=== PATIENT | female | born 1995 | race Caucasian/White ===

== ENCOUNTER 2019-02-11 17:06 | Emergency (ER) | payer SELFPAY ==
[~2019-02-11] VITALS: Ht 165.1 cm; Wt 63.5 kg
[2019-02-11 17:30] VITALS: BP 106/71
--- NOTE | 2019-02-11 17:30 | NUR ---
ED Nurse Note: pt walked in to ED with friend due to right knee pain. no recent injury. hx of right knee surgery. pt unable to weight on it. AAO x4. respirations even and non-labored noted. will wait for the further order.
--- NOTE | 2019-02-11 18:07 | Emergency Room Report ---
History of Present Illness General Chief Complaint: Pain Source: Patient Present Illness HPI 23-year-old female presents to the emergency department complaining of 7 out of 10 in severity acute onset pain and swelling with tenderness to the right knee since this morning. Patient reports that she was sitting [place] style and when she went to get up she was unable to straighten her leg completely. Patient reports pain with range of motion however she is able to bend the knee. states it feels "stuck". Patient also reports that she has had multiple ligamental tears and surgery was performed in the affected knee. Patient denies erythema, warmth, recent surgical procedures, or recent open wounds. Denies trauma or fall. Denies paresthesias. Allergies: Coded Allergies: No Known Allergies (Unverified , 02/11/19) Patient History Past Medical History: see triage record Past Surgical History: none Pertinent Family History: none Now: No Reviewed Nursing Documentation: PMH: Agreed; PSxH: Agreed Nursing Documentation-PMH Past Medical History: No History, Except For Review of Systems All Other Systems: negative except mentioned in HPI Physical Exam Vital Signs Date Time Temp Pulse Resp B/P (MAP) Pulse Ox O2 Delivery O2 Flow Rate FiO2 02/11/19 17:20 97.5 96 16 106/71 98 Room Air Sp02 EP Interpretation: reviewed, normal General Appearance: alert, GCS 15, non-toxic, mild distress Head: normocephalic, atraumatic Eyes: bilateral eye normal inspection, bilateral eye PERRL ENT: hearing grossly normal, normal voice Neck: full range of motion Respiratory: chest non-tender, lungs clear, normal breath sounds, speaking full sentences Cardiovascular #1: regular rate, rhythm, normal capillary refill Cardiovascular #2: 2+ dorsalis pedis (R) Musculoskeletal: back normal, gait/station normal, normal range of motion, tender - anterior lateral aspect of the right knee, no increased laxity, unable to fully extend, able to flex. she extends to approx 85 %. no erythema or warmth , some mild swelling noted, no palpable effusion. Patella appears in normal anatomical position. Neurologic: alert, oriented x3, responsive, motor strength/tone normal, sensory intact, speech normal, grossly normal Psychiatric: judgement/insight normal Skin: normal color, no rash, warm/dry, well hydrated Lymphatic: no adenopathy Medical Decision Making PA Attestation Dr. Hui is my supervising Physician whom patient management has been discussed with. Diagnostic Impression: Primary Impression: Knee pain, acute Qualified Codes: M25.561 - Pain in right knee ER Course 23-year-old female presents to the emergency department complaining of 7 out of 10 in severity acute onset pain and swelling with tenderness to the right knee since this morning. Patient reports that she was sitting [place] style and when she went to get up she was unable to straighten her leg completely. Patient reports pain with range of motion however she is able to bend the knee. states it feels "stuck". Patient also reports that she has had multiple ligamental tears and surgery was performed in the affected knee. Patient denies erythema, warmth, recent surgical procedures, or recent open wounds. Denies trauma or fall. Denies paresthesias. Ddx considered but are not limited to Fracture, dislocation, contusion, Sprain/ Strain/Spasm Vital signs: are WNL, pt. is afebrile H&PE are most consistent with musculoskeletal injury will perform imaging to r/ o fractures/dislocations. ORDERS: - X-ray Right Knee 3 views - negative for fx, Dislocation, or significant soft tissue injury, per preliminary read in ED, and signed by SHERRIE Chairez , my supervising physician has reviewed, and agrees with my interpretation. ED INTERVENTIONS: - [place] PO - Souleymane wrap applied by plant technician/control room operator. Pt. remains neurovascularly intact. - -Patient is provided with crutches and instructed on their use -I do not identify an emergent condition at this time. With current presentation , pt. is stable for close outpatient follow up and conservative treatment. D/ w pt. to return promptly to ED with worsening or new symptoms.- Pt. verbalizes' understanding and agreement with proposed treatment plan. DISCHARGE: At this time pt. is stable for d/c to home. Will provide printed patient care instructions, and any necessary prescriptions. Care plan and follow up instructions have been discussed with the patient prior to discharge. Other X-Ray Diagnostic Results Other X-Ray Diagnostic Results : X-Ray ordered: Right kNee # of Views/Limited Vs Complete: 3 View Indication: Pain EP Interpretation: Yes SHERRIE Xray: Interpretation reviewed, by supervising MD, and agrees with findings. Interpretation: no dislocation, no soft tissue swelling, no fractures Impression: No acute disease Electronically Signed by: Khalida Chairez PA-C Last Vital Signs Date Time Temp Pulse Resp B/P (MAP) Pulse Ox O2 Delivery O2 Flow Rate FiO2 02/11/19 17:20 97.5 96 16 106/71 98 Room Air Status: improved Disposition: HOME, SELF-CARE Condition: Stable Referrals: NON PHYSICIAN (PCP) Patient Instructions: Knee Pain, [id number] Additional Instructions: Take medications as directed. Follow up with an SAFETY LEADER in 3-5 days, even if your symptoms have resolved. If symptoms persist MRI may be required at the discretion of your PCP or Ortho Specialist. --Please review list of primary care clinics, if you do not already have a primary care provider who can give you an Orthopedic Referral. Return sooner to ED if new symptoms occur, or current symptoms become worse. - Please note that this Emergency Department Report was dictated using Cloud Securitylithograph press operator technology software, occasionally this can lead to erroneous entry secondary to interpretation by the dictation equipment. Khalida Chairez Feb 11, 2019 18:07
[2019-02-11] MEDS ORDERED: IBUPROFEN600 MG ORAL (18:18)
--- NOTE | 2019-02-11 18:26 | Diagnostic Imaging Report ---
EXAM: XR Right Knee, 3 views CLINICAL HISTORY: PAIN TECHNIQUE: Three views of the right knee. COMPARISON: No relevant prior studies available. FINDINGS: Bones/joints: No acute fracture or malalignment. Postsurgical changes of prior ACL reconstruction. Soft tissues: Unremarkable. IMPRESSION: No acute fracture or malalignment.
[2019-02-11] MEDS ORDERED: Tylenol #3 tab (300mg/30mg) ORAL ONE (18:30)
--- NOTE | 2019-02-11 18:40 | NUR ---
ED Nurse Note: crutches and avril warp provide.
[2019-02-11 18:45] VITALS: BP 111/77
--- NOTE | 2019-02-11 18:47 | NUR ---
ER DISCHARGE NOTE: Patient is cleared to be discharged with friend per SUNITA, pt is aox4, on room air, with stable vital signs. pt was given dc and prescription instructions, pt was able to verbalize understanding, pt id band removed. pt is able to ambulate with steady gait. pt took all belongings.
== END 2019-02-11 19:07 | disposition home or self-care (01) ==
LOC: EMR 17:44
DX: M25.561 Pain in right knee (principal)
CPT/HCPCS: 99284

== ENCOUNTER 2019-09-08 15:42 | Emergency (ER) | payer OTHER ==
[~2019-09-08] VITALS: Ht 165.1 cm; Wt 68.0 kg
[~2019-09-08 15:42] MED LIST: IBUPROFEN600 MG ORAL
[2019-09-08 16:19] VITALS: BP 126/73
--- NOTE | 2019-09-08 16:39 | Emergency Room Report ---
History of Present Illness General Chief Complaint: Upper Extremity Injury Source: Medical Record Present Illness HPI 23-year-old female presents to the emergency department complaining of 5 out of 10 severity pain, swelling and persistent symptoms of the right elbow x5 days. Patient reports she has had similar symptoms in the past. Patient denies trauma or fall. Patient denies erythema, warmth, fevers, chills or recent open wounds near the affected area. Denies numbness tingling or loss of sensation or gross motor movements of the extremities, incontinence of bowel or bladder. Denies CP, Palpitations, LOC, AMS, dizziness, Changes in Vision, weakness or a sudden severe headache. Allergies: Coded Allergies: No Known Allergies (Unverified , 02/11/19) Patient History Past Medical History: see triage record Past Surgical History: none Pertinent Family History: none Now: No Reviewed Nursing Documentation: PMH: Agreed; PSxH: Agreed Nursing Documentation-PMH Past Medical History: No History, Except For Review of Systems All Other Systems: negative except mentioned in HPI Physical Exam Vital Signs Date Time Temp Pulse Resp B/P (MAP) Pulse Ox O2 Delivery O2 Flow Rate FiO2 09/08/19 15:46 98.2 84 14 126/73 (90) 99 Room Air Sp02 EP Interpretation: reviewed, normal General Appearance: no apparent distress, alert, GCS 15, non-toxic Head: normocephalic, atraumatic Eyes: bilateral eye normal inspection, bilateral eye PERRL ENT: hearing grossly normal, normal voice Neck: full range of motion Respiratory: lungs clear, normal breath sounds, speaking full sentences Cardiovascular #1: regular rate, rhythm, normal capillary refill Cardiovascular #2: 2+ radial (R), 2+ radial (L) Musculoskeletal: gait/station normal, normal range of motion, non-tender, swelling - non erythematous swelling localized to the right posterior elbow, palpable bursa, no warmth, FROM of the joint, no bony ttp. Neurologic: alert, oriented x3, responsive, motor strength/tone normal, sensory intact, speech normal, grossly normal Psychiatric: judgement/insight normal Skin: no rash, normal color Lymphatic: no adenopathy Medical Decision Making PA Attestation Dr. Sims is my supervising Physician whom patient management has been discussed with. Diagnostic Impression: Primary Impression: Olecranon bursitis of right elbow ER Course 23-year-old female presents to the emergency department complaining of 5 out of 10 severity pain, swelling and persistent symptoms of the right elbow x5 days. Patient reports she has had similar symptoms in the past. Patient denies trauma or fall. Patient denies erythema, warmth, fevers, chills or recent open wounds near the affected area. Denies numbness tingling or loss of sensation or gross motor movements of the extremities, incontinence of bowel or bladder. Denies CP, Palpitations, LOC, AMS, dizziness, Changes in Vision, weakness or a sudden severe headache. Ddx considered but are not limited to Fracture, dislocation, contusion, Sprain/ Strain/Spasm, gout, septic joint, bursitis just to name a few Vital signs: are WNL, pt. is afebrile H&PE are most consistent with right olecranon bursitis no evidence of infection no erythema no warmth patient has full range of motion no tenderness on palpation no obvious deformities otherwise. ORDERS: - X-ray warranted at this time no history of trauma or fall and no localized bony tenderness. ED INTERVENTIONS: -Souleymane wrap applied to the right elbow by manager technical services. Pt. remains neurovascularly intact. -I do not identify an emergent condition at this time. With current presentation , pt. is stable for close outpatient follow up and conservative treatment. D/ w pt. to return promptly to ED with worsening or new symptoms.- Pt. verbalizes' understanding and agreement with proposed treatment plan. DISCHARGE: At this time pt. is stable for d/c to home. Will provide printed patient care instructions, and any necessary prescriptions. Care plan and follow up instructions have been discussed with the patient prior to discharge. Last Vital Signs Date Time Temp Pulse Resp B/P (MAP) Pulse Ox O2 Delivery O2 Flow Rate FiO2 09/08/19 16:19 98.2 14 126/73 99 Room Air 09/08/19 15:46 84 Disposition: HOME, SELF-CARE Condition: Stable Scripts Ibuprofen* (MOTRIN*) 600 Mg Tablet 600 MG ORAL THREE TIMES A DAY, #30 TAB 0 Refills Prov: Khalida Chairez 09/08/19 Patient Instructions: Olecranon Bursitis With Rehab-Sports[facility] Additional Instructions: Take medications as directed. Follow up with a Primary Care Provider in 3-5 days, even if your symptoms have resolved. Return sooner to ED if new symptoms occur, or current symptoms become worse. - Please note that this Emergency Department Report was dictated using CardioMEM[employer]director of culture technology software, occasionally this can lead to erroneous entry secondary to interpretation by the dictation equipment. Khalida Chairez Sep 08, 2019 16:39
[2019-09-08] MEDS ORDERED: IBUPROFEN600 MG ORAL (16:43)
[2019-09-08 16:54] VITALS: BP 126/73
--- NOTE | 2019-09-08 16:55 | NUR ---
ED Nurse Note: pt c/o rt elbow swelling ermd eval done no nsg orders avril wrapp applied by feed research technician pt to follow up with pmd.
--- NOTE | 2019-09-08 16:56 | NUR ---
ED Nurse Note: Pt cleared by health care Provider for discharge. DC instructions/prescription was given and explained to pt and verbalized understanding of teachings. All medical deviecs such as ID band removed. Pt is AAO x4, ambulatory and left with all personal belongings.
== END 2019-09-08 16:55 | disposition home or self-care (01) ==
LOC: EDBD 15:42 → EMR 16:29
DX: M70.21 Olecranon bursitis, right elbow (principal); Y93.9 Activity, unspecified
CPT/HCPCS: 99282